=== PATIENT | female | born 1970 | race African-American/Black ===

== ENCOUNTER 2016-12-10 09:49 | Inpatient (IN) | payer OTHER ==
[~2016-12-10] VITALS: Ht 172.7 cm; Wt 68.8 kg
[2016-12-10] VITALS (19 sets, daily range): BP systolic 102–131; BP diastolic 53–80; PULSE 63–101; RESP 11–20; Ht 172.7 cm; Wt 68.8 kg
[2016-12-10] MEDS ORDERED: MIDAZOLAM 1 MG/ML 2 ML INJ ONE (11:18)
[2016-12-10] MEDS ORDERED: ROCURONIUM 50 MG INJ ONE (11:18)
[2016-12-10] MEDS ORDERED: PROPOFOL 20 ML ONE (11:18)
[2016-12-10] MEDS ORDERED: BUPIVACAINE 0.25% (MPF) 30 ML INJ ONE (11:28)
[2016-12-10] MEDS ORDERED: SOD CHLORIDE 0.9% 1,000 ML IV SCH (12:00)
[2016-12-10] MEDS ORDERED: CEFAZOLIN 2 GM/50 ML (PMX) 50 ML IVPB ONE (12:00)
[2016-12-10] MEDS ORDERED: ONDANSETRON 4 MG INJ ONE (12:02)
[2016-12-10] MEDS ORDERED: METOCLOPRAMIDE 10 MG INJ ONE (12:02)
[2016-12-10] MEDS ORDERED: DEXAMETHASONE 4 MG/ML 1 ML INJ ONE (12:02)
[2016-12-10] MEDS ORDERED: FAMOTIDINE 20 MG INJ ONE (12:02)
[2016-12-10] MEDS ORDERED: NEOSTIGMINE 3 MG/3 ML SYRINGE ONE (13:07)
[2016-12-10] MEDS ORDERED: GLYCOPYRROLATE 0.4 MG INJ ONE (13:07)
[2016-12-10] MEDS ORDERED: CEFAZOLIN 1 GM INJ ONE (13:07)
[2016-12-10] MEDS: LACTATED RINGER'S 1,000 ML IV SCH ×2 (13:21→23:21)
[2016-12-10] MEDS ORDERED: DIPHENHYDRAMINE 50 MG INJ IV PRN (13:30)
[2016-12-10] MEDS ORDERED: HYDROmorphONE (0.2 MG/ML) 10ML SYG IV PRN ×2 (13:30)
[2016-12-10] MEDS ORDERED: EPHEDrine SULFATE 50 MG/5 ML SYG IV PRN (13:30)
[2016-12-10] MEDS ORDERED: morphine 2 MG INJ IV PRN (13:30)
[2016-12-10] MEDS ORDERED: morphine (1 MG/ML) 10ML SYRINGE IV PRN ×3 (13:30)
[2016-12-10] MEDS ORDERED: HYDROCODONE/APAP (5/325) TAB PO PRN (13:30)
[2016-12-10] MEDS ORDERED: ONDANSETRON 4 MG INJ IV PRN ×2 (13:30→18:30)
[2016-12-10] MEDS ORDERED: LABETALOL HCL 20MG INJ IV PRN (13:30)
--- NOTE | 2016-12-10 13:31 | OPR ---
DATE OF OPERATION: 12/10/2016 INDICATION: This is a 46-year-old female with a thyroid goiter with symptoms of pressure and diffic ulty swallowing and breathing. She also had an FNA with suspicious cytology. She is here for a tot al thyroidectomy. Risks, alternatives, benefits, and were discussed with patient. Patient ex pressed understanding and consents to the operation. PREOPERATIVE DIAGNOSIS: Thyroid goiter. POSTOPERATIVE DIAGNOSIS: Thyroid goiter. OPERATION: Total thyroidectomy. SURGEON: Cash Delacruz MD SPECIMENS: Total thyroid. COMPLICATIONS: None. ANESTHESIA: General. PROCEDURE: The patient was taken to the OR and prepped and draped in usual sterile fashion. Surgic al timeout was performed. IV antibiotics were given. Collar incision was made with a 15 blade. Dissection with cautery was carried down through the plat ysma. Of note, the left thyroid was enlarged and difficult to access. The strap muscles were divid ed with cautery. The left thyroid was mobilized by first ligating the middle thyroidal vein and mob ilizing the superior and inferior poles. Attention was paid to the recurrent laryngeal nerve and di ssection was performed juxtaposed to the thyroid gland. The midline isthmus was mobilized with blun t dissection with tonsil. Attention was then paid to the right thyroid. The middle thyroidal vein w as ligated with the handheld LigaSure. Superior and inferior poles were mobilized and the thyroid w as medialized with attention paid to the recurrent laryngeal nerve. There was good hemostasis. The thyroid was then removed. Specimen markings were a single short right superior, single long right inferior, double shorts left superior, double longs left inferior. Surgical site was irrigated and 40 cm of pressure was placed for Valsalva. There was no evidence of bleeding. The strap muscles were reapproximated with interrupted 3-0 Vicryl. The platysma was livia pproximated with interrupted 3-0 Vicryl. Skin was approximated with interrupted 3-0 Vicryl. The sk in was also closed with running 4-0 Monocryl. Local anesthesia was injected. Dry dressings were ap plied. Dictated By: CASH MILLER/VERONICA Conf#: [id number] DID#: [id number]
[2016-12-10] MEDS: HYDROmorphONE (0.2 MG/ML) 10ML SYG IV PRN ×3 (13:35→14:01)
[2016-12-10 14:00] LABS: ADD SCAN DIFF NO
[2016-12-10] MEDS ORDERED: MEPERIDINE 25 MG INJ IV PRN (14:00)
[2016-12-10 14:01] LABS: BASOPHILS % 0.3 % (0.0-2.0); EOSINOPHILS # 0.1 10^3/ul (0.0-0.5); EOSINOPHILS % 0.4 % (0.0-7.0); HEMATOCRIT 36.6 % (37.0-47.0); LYMPHOCYTES # 1.8 10^3/ul (0.8-2.9); MEAN CORPUSCULAR HEMOGLOBIN 29.5 pg (29.0-33.0); MEAN CORPUSCULAR HGB CONC 32.8 g/dl (32.0-37.0); MEAN CORPUSCULAR VOLUME 89.9 fl (82.0-101.0); MEAN PLATELET VOLUME 10.2 fl (7.4-10.4); MONOCYTE # 0.2 10^3/ul (0.3-0.9); MONOCYTES % 1.7 % (0.0-11.0); NEUTROPHIL # 10.4 10^3/ul (1.6-7.5); PLATELET COUNT 176 10^3/UL (140-415); RED BLOOD COUNT 4.07 10^6/ul (4.20-5.40); RED CELL DISTRIBUTION WIDTH 13.3 % (11.5-14.5); WHITE BLOOD COUNT 12.5 10^3/ul (4.8-10.8)
[2016-12-10 14:11] LABS: ALBUMIN 3.6 g/dl (3.3-4.9)
[2016-12-10 14:13] LABS: POTASSIUM 3.8 mmol/L (3.5-5.1)
[2016-12-10 14:14] LABS: ALBUMIN/GLOBULIN RATIO 1.24; BILIRUBIN,INDIRECT 0.1 mg/dl (0-1.1); BILIRUBIN,TOTAL 0.1 mg/dl (0.2-1.3); CREATININE 0.75 mg/dl (0.44-1.00); TOTAL PROTEIN 6.5 g/dl (6.1-8.1)
[2016-12-10 14:15] LABS: CALCIUM 8.1 mg/dl (8.4-10.2)
[2016-12-10] MEDS ORDERED: ACETAMINOPHEN 325 MG TAB PO PRN (18:30)
--- NOTE | 2016-12-10 19:14 | HP ---
Date/Time of Note Date/Time of Note DATE: 12/10/16 TIME: 19:12 Assessment/Plan VTE Prophylaxis VTE Prophylaxis Intervention: SCD's Lines/Catheters IV Catheter Type (from Nrsg): Peripheral IV Urinary Cath still in place: No Assessment/Plan Assessment/Plan -Thyroid goiter. -SP Total thyroidectomy. - per surgery - Smoker - smoking cessation - SCDs, Protonix DW DR Declan JO/LEONEL Admit Date/Time Admit Date/Time Dec 10, 2016 at 09:49 Hx of Present Illness This is a 46-year-old female with a thyroid goiter with symptoms of pressure and difficulty swallowing and breathing. She also had an FNA with suspicious cytology. She underwent total thyroidectomy today. Got admitted under Dr Declan CASTANEDA Eyes: no complaints ENT: dysphagia (due to surgery) Respiratory: no complaints Cardiovascular: no complaints Gastrointestinal: no complaints Genitourinary: no complaints Musculoskeletal: no complaints Skin: no complaints PMH/Family/Social Social History Alcohol Use: rarely Smoking Status: Former smoker Drug Use: none Exam/Review of Systems Vital Signs Vitals Vital Signs Date Time Temp Pulse Resp B/P Pulse Ox O2 Delivery O2 Flow Rate FiO2 12/10/16 16:25 70 110/62 12/10/16 15:09 98.2 19 96 12/10/16 14:40 Room Air 12/10/16 13:38 10.0 Exam Constitutional: alert, oriented, well developed Psych: no complaints Head: atraumatic Eyes: EOMI ENMT: nl external ears & nose Neck: other (dressing noted-DDI) Respiratory: clear to auscultation Cardiovascular: nl pulses Gastrointestinal: non-tender, soft Musculoskeletal: nl extremities to inspection Neurological: nl mental status, nl speech Labs Result Diagram: 12/10/16 1354 12/10/16 1354 Medications Medications Current Medications Cefazolin Sodium/ Dextrose (Ancef 2 Gm/50 ml (Pmx)) 50 ml @ 100 mls/hr Q8H IVPB ; Start 12/10/16 at 22:00; Stop 12/11/16 at 21:59 Morphine Sulfate (morphine) 2 mg Q2H PRN IV PAIN LEVEL 6-10; Start 12/10/16 at 13:30 Acetaminophen/ Hydrocodone Bitart 1 tab 1 tab Q6H PRN PO PAIN LEVEL 6-10; Start 12/10/16 at 13:30 Lactated Ringer's (Lr) 1,000 ml @ 100 mls/hr Q10H IV ; Start 12/10/16 at 13:21 Ondansetron HCl (Zofran Inj) 4 mg Q6H PRN IV NAUSEA AND/OR VOMITING; Start 12/10 at 18:30 Acetaminophen (Tylenol Tab) 650 mg Q6H PRN PO PAIN AND OR ELEVATED TEMP; Start 12/10/16 at 18:30 Docusate Sodium (Colace) 200 mg DAILY PO ; Start 12/11/16 at 09:00 Alprazolam (Xanax) 0.25 mg BID PO ; Start 12/10/16 at 21:00 SUNSHINE DIMAS Dec 10, 2016 19:14
[2016-12-10] MEDS: ALPRAZOLAM 0.25 MG TAB PO SCH (20:41)
[2016-12-10] MEDS: CEFAZOLIN 2 GM/50 ML (PMX) 50 ML IVPB SCH (21:49)
[2016-12-11] MEDS: CEFAZOLIN 2 GM/50 ML (PMX) 50 ML IVPB SCH (05:06)
[2016-12-11 05:25] LABS: ADD SCAN DIFF NO
[2016-12-11 05:48] LABS: BASOPHILS % 0.1 % (0.0-2.0); EOSINOPHILS % 0.1 % (0.0-7.0); HEMATOCRIT 39.6 % (37.0-47.0); HEMOGLOBIN 12.9 g/dl (12.0-16.0); LYMPHOCYTES # 2.1 10^3/ul (0.8-2.9); LYMPHOCYTES % 12.3 % (15.0-51.0); MEAN CORPUSCULAR HEMOGLOBIN 29.5 pg (29.0-33.0); MEAN CORPUSCULAR HGB CONC 32.6 g/dl (32.0-37.0); MEAN CORPUSCULAR VOLUME 90.4 fl (82.0-101.0); MEAN PLATELET VOLUME 11.3 fl (7.4-10.4); MONOCYTE # 1.2 10^3/ul (0.3-0.9); NEUTROPHIL # 13.5 10^3/ul (1.6-7.5); NEUTROPHILS % 79.8 % (39.0-77.0); PLATELET COUNT 214 10^3/UL (140-415); RED BLOOD COUNT 4.38 10^6/ul (4.20-5.40); RED CELL DISTRIBUTION WIDTH 13.2 % (11.5-14.5); WHITE BLOOD COUNT 16.9 10^3/ul (4.8-10.8)
[2016-12-11] MEDS ORDERED: PANTOPRAZOLE (EC) 40 MG TAB PO SCH (06:00)
[2016-12-11 06:21] LABS: ALBUMIN 3.7 g/dl (3.3-4.9); POTASSIUM 3.9 mmol/L (3.5-5.1)
[2016-12-11 06:23] LABS: BILIRUBIN,INDIRECT 0.2 mg/dl (0-1.1); BILIRUBIN,TOTAL 0.2 mg/dl (0.2-1.3); CREATININE 0.81 mg/dl (0.44-1.00)
[2016-12-11 06:24] LABS: ALBUMIN/GLOBULIN RATIO 1.15; CALCIUM 8.5 mg/dl (8.4-10.2); TOTAL PROTEIN 6.9 g/dl (6.1-8.1)
[2016-12-11 07:30] VITALS: BP 116/61; RESP 18
[2016-12-11 07:41] VITALS: BP 104/59; RESP 18
[2016-12-11 08:13] VITALS: BP 103/58; RESP 18
[2016-12-11] MEDS: ALPRAZOLAM 0.25 MG TAB PO SCH (08:38)
--- NOTE | 2016-12-11 08:56 | PN ---
Date/Time of Note Date/Time of Note DATE: 12/11/16 TIME: 08:55 Assessment/Plan VTE Prophylaxis VTE Prophylaxis Intervention: SCD's Lines/Catheters IV Catheter Type (from Nrs): Peripheral IV Urinary Cath still in place: No Assessment/Plan Chief Complaint/Hosp Course s/p total thyroidectomy Problems: Assessment/Plan dc home f/u in 2 weeks Subjective 24 Hr Interval Summary Free Text/Dictation doing well, no issues, voice normal, swallowing improved Exam/Review of Systems Vital Signs Vitals Vital Signs Date Time Temp Pulse Resp B/P Pulse Ox O2 Delivery O2 Flow Rate FiO2 12/11/16 08:13 98.4 66 18 103/58 99 12/10/16 14:40 Room Air 12/10/16 13:38 10.0 Intake and Output 12/10/16 12/10/16 12/11/16 15:00 23:00 07:00 Intake Total 1400 ml 200 ml 100 ml Output Total 20 ml Balance 1380 ml 200 ml 100 ml Exam clean dry intact Results Result Diagram: 12/11/16 0440 12/11/16 0440 Results 24 hrs Laboratory Tests Test 12/10/16 13:54 12/11/16 00:38 12/11/16 04:40 Alanine Aminotransferase (ALT/SGPT) 27 26 Albumin 3.6 3.7 Albumin/Globulin Ratio 1.24 1.15 Alkaline Phosphatase 92 79 Anion Gap 14 14 Aspartate Amino Transf (AST/SGOT) 22 31 Basophils # 0.0 0.0 Basophils % 0.3 0.1 Blood Urea Nitrogen 10 9 Calcium Level 8.1 L 8.4 8.7 Carbon Dioxide Level 24 28 Chloride Level 109 104 Creatinine 0.75 0.81 Direct Bilirubin 0.00 0.00 Eosinophils # 0.1 0.0 Eosinophils % 0.4 0.1 Globulin 2.90 3.20 Glucose Level 84 93 Hematocrit 36.6 L 39.6 Hemoglobin 12.0 12.9 Indirect Bilirubin 0.1 0.2 Lymphocytes # 1.8 2.1 Lymphocytes % 14.0 L 12.3 L Mean Corpuscular Hemoglobin 29.5 29.5 Mean Corpuscular Hemoglobin Concent 32.8 32.6 Mean Corpuscular Volume 89.9 90.4 Mean Platelet Volume 10.2 11.3 H Monocytes # 0.2 L 1.2 H Monocytes % 1.7 7.0 Neutrophils # 10.4 H 13.5 H Neutrophils % 83.0 H 79.8 H Nucleated Red Blood Cells # 0.0 0.0 Nucleated Red Blood Cells % 0.0 0.0 Platelet Count 176 214 # Potassium Level 3.8 3.9 Red Blood Count 4.07 L 4.38 Red Cell Distribution Width 13.3 13.2 Sodium Level 143 142 Total Bilirubin 0.1 L 0.2 Total Protein 6.5 6.9 White Blood Count 12.5 H 16.9 #H Medications Medications Current Medications Cefazolin Sodium/ Dextrose (Ancef 2 Gm/50 ml (Pmx)) 50 ml @ 100 mls/hr Q8H IVPB Last administered on 12/11/16 05:06; Admin Dose 100 MLS/HR; Start 12/10/16 at 22:00; Stop 12/11/16 at 21:59 Morphine Sulfate (morphine) 2 mg Q2H PRN IV PAIN LEVEL 6-10; Start 12/10/16 at 13:30 Acetaminophen/ Hydrocodone Bitart 1 tab 1 tab Q6H PRN PO PAIN LEVEL 6-10; Start 12/10/16 at 13:30 Lactated Ringer's (Lr) 1,000 ml @ 100 mls/hr Q10H IV ; Start 12/10/16 at 13:21 Ondansetron HCl (Zofran Inj) 4 mg Q6H PRN IV NAUSEA AND/OR VOMITING; Start 12/10 at 18:30 Acetaminophen (Tylenol Tab) 650 mg Q6H PRN PO PAIN AND OR ELEVATED TEMP Last administered on 12/11/16 05:06; Admin Dose 650 MG; Start 12/10/16 at 18:30 Docusate Sodium (Colace) 200 mg DAILY PO ; Start 12/11/16 at 09:00 Alprazolam (Xanax) 0.25 mg BID PO Last administered on 12/11/16 08:38; Admin Dose 0.25 MG; Start 12/10/16 at 21:00 Pantoprazole (Protonix Tab) 40 mg DAILY@06 PO Last administered on 12/11/16 05: 07; Admin Dose 40 MG; Start 12/11/16 at 06:00 Leonarda THORNE Dec 11, 2016 08:56
[2016-12-11] MEDS ORDERED: DOCUSATE SODIUM 100 MG CAP PO SCH (09:00)
[2016-12-11] MEDS ORDERED: HYDR-906 PO (12:34)
--- NOTE | 2016-12-14 01:48 | DS ---
DATE OF ADMISSION: 12/10/2016 DATE OF DISCHARGE: 12/11/2016 FINAL DIAGNOSES: Thyroid goiter status post total thyroidectomy. BRIEF HISTORY: The patient is a 46-year-old female with goiter and symptoms of pressure and difficu lty swallowing. Patient was evaluated by Dr. Delacruz in general surgery consultation. The patient was brought to the hospital and underwent total thyroidectomy. Post operation, the patient experienced some pain and was admitted for further evaluation. The patient was given Tylenol and Demerol p.r.n. for pain. The patient's condition improved. The patient was able to a swallow with no difficulty. Pain was well controlled. The patient was discharged home. CONDITION ON DISCHARGE: Hemodynamically stable. ACTIVITY: As patient tolerates. DIET: Regular diet. The patient is a smoker; smoking cessation advised. DISCHARGE MEDICATIONS: Patient is given a prescription for [place] p.r.n. for pain. Patient is instr ucted to follow up with Dr. Delacruz in postoperative appointment in 1 week. Interdisciplinary plan of ca re was established for this patient. Plan of care was discussed with Dr. Vallejo. Dictated By: ONEAL AVILA LENS COATING TECHNICIAN for MEGHA VALLEJO MD SR/NTS Conf#: [id number] DID#: [id number]
== END 2016-12-11 12:35 | disposition home or self-care (01) | DRG 627 ==
LOC: REC 09:49 → EDSTATUS 14:00 → MS1 14:40
PROVIDERS: ADMIT Internal Medicine; ATTEND Surgery
PROC: 0GTG0ZZ Resection of Left Thyroid Gland Lobe, Open Approach (ICD-10-PCS; 2016-12-10)
PROC: 0GTH0ZZ Resection of Right Thyroid Gland Lobe, Open Approach (ICD-10-PCS; principal; 2016-12-10 12:00)
DX: E04.9 Nontoxic goiter, unspecified (principal); F17.210 Nicotine dependence, cigarettes, uncomplicated
CPT/HCPCS: 80053; 82310; 84703; 85025; 88307; J0690; J1100; J1170; J2175; J2250; J2405; J2710; J2765; J3010; J7120